=== PATIENT | male | born 1985 | race Caucasian/White ===

== ENCOUNTER 2024-04-15 14:57 | Outpatient (CLI) | payer OTHER, SELFPAY ==
--- NOTE | 2024-04-15 15:04 | MR_ITS ---
WS: [id number] MRI CERVICAL SPINE NONCONTRAST HISTORY: CERVICAL RADICULOPATHY COMPARISON: None available. Technique: Multiplanar, multisequence noncontrast imaging of the cervical spine. Straightening and slight reversal of the normal cervical lordosis centered at C5. Signal within the cervical cord is normal. Visualized posterior fossa is unremarkable. Craniocervical junction, C1 and C2 relationship, odontoid process and soft tissues are normal. C2-C3: Normal. C3-C4: Mild osteophytic ridging with a tiny central disc protrusion. Mild RIGHT foraminal stenosis. C4-C5: Small central disc protrusion encroaching upon the ventral CSF. Mild central and LEFT foramina l stenosis. LEFT foraminal stenosis due to disc osteophyte disease. C5-C6: Mild annular disc bulging with facet arthritis. Small central disc protrusion. Small foraminal osteophytes. Mild bilateral foraminal and small central stenosis. Slightly greater disc osteophyte e ncroaching upon the RIGHT foramen. C6-C7: Small central disc protrusion. Small bilateral foraminal osteophytes. Mild central and RIGHT f oraminal stenosis. C7-T1: Normal. Paraspinal soft tissue are normal. MR/MR cervical spin wo con* [id number] IMPRESSION: 1. Mild degenerative cervical spondylosis. 2. C5-6: Small central disc protrusion with bilateral foraminal disc osteophyt es. Foraminal stenosis, greater on the RIGHT. 3. C3-4: Very mild RIGHT foraminal stenosis. 4. C4-5: Mild central and LEFT foraminal stenosis. 5. C6-7: Mild central and RIGHT foraminal stenosis.
== END 2024-04-15 14:58 | disposition home or self-care (01) ==
PROVIDERS: PCP Family Medicine; Visit Provider Family Medicine
DX: M54.12 Radiculopathy, cervical region (principal); M99.61 Osseous and subluxation stenosis of intervertebral foramina of cervical region; M25.78 Osteophyte, vertebrae
CPT/HCPCS: 72141